=== PATIENT | female | born 1930 | race American Indian/Alaskan Native ===

== ENCOUNTER 2018-06-25 14:29 | Emergency (ER) | payer MEDICARE ==
[2018-06-25] MEDS ORDERED: ATROVENT IH ONE (15:10)
[2018-06-25] MEDS ORDERED: SOLU-Medrol IV ONE (15:10)
[2018-06-25] MEDS ORDERED: PROVENTIL IH ONE (15:10)
[2018-06-25 15:43] LABS: Basophils # (Auto) 0.1 K/mm3 (0.0-0.1); Basophils % (Auto) 0.9 % (0.0-1.8); Eosinophils # (Auto) 0.7 K/mm3 (0.0-0.4); Eosinophils % (Auto) 9.9 % (0.0-4.3); Hematocrit 36.4 % (30.3-42.9); Hemoglobin 12.1 gm/dl (10.1-14.3); Lymphocytes # (Auto) 1.2 K/mm3 (1.2-5.4); Lymphocytes % (Auto) 16.9 % (13.4-35.0); Mean Corpuscular HGB Conc 33 % (30-34); Mean Corpuscular Volume 90 fl (79-97); Monocytes # (Auto) 0.6 K/mm3 (0.0-0.8); Monocytes % (Auto) 8.4 % (0.0-7.3); Platelet Count 172 K/mm3 (140-440); Red Blood Count 4.04 M/mm3 (3.65-5.03); Red Cell Distribution Width 13.9 % (13.2-15.2)
[2018-06-25 16:00] LABS: BUN/Creatinine Ratio 16; Blood Urea Nitrogen 14 mg/dL (7-17); Calcium 9.7 mg/dL (8.4-10.2); Hemolysis Index 5
[2018-06-25 16:01] LABS: INR 1.06 (0.87-1.13); Partial Thromboplastin Time 29.9 Sec. (24.2-36.6)
--- NOTE | 2018-06-25 16:18 | Emergency Department Report ---
ED Shortness of Breath HPI - General Chief Complaint: Dyspnea/Respdistress Stated Complaint: MAGGIE Time Seen by Provider: 06/25/18 15:09 Source: patient Mode of arrival: Stretcher Limitations: No Limitations - History of Present Illness Initial Comments: 87-year-old female with history of COPD presents to ED with shortness of breath. She reports URI symptoms and worsening shortness of breath over the past week, however states today it became so bad that she needed to call EMS. Patient has been using her nebulizer, however no improvement today. She reports productive cough, denies fever. Denies chest pain. - Related Data Previous Rx's Medication Instructions Recorded Last Taken Type ALBUTEROL Inhaler(NF) [VENTOLIN 1 puff IH Q4HR PRN #1 inha 06/25/18 Unknown Rx Inhaler(NF)] Benzonatate [Tessalon Perles] 100 mg PO Q8HR PRN #20 capsule 06/25/18 Unknown Rx predniSONE [Prednisone] 50 mg PO DAILY #5 tablet 06/25/18 Unknown Rx Allergies Allergy/AdvReac Type Severity Reaction Status Date / Time Thiazides Allergy Unknown Verified 06/25/18 15:54 ED Review of Systems ROS: Stated complaint: MAGGIE Other details as noted in HPI ED Past Medical Hx - Past Medical History Hx Hypertension: Yes Hx CVA: No Hx Heart Attack/AMI: No Hx Congestive Heart Failure: No Hx Diabetes: No Hx Deep Vein Thrombosis: No Hx Pulmonary Embolism: No Hx GERD: No Hx Liver Disease: No Hx Renal Disease: No Hx of Cancer: No Hx Sickle Cell Disease: No Hx Arthritis: No Hx Headaches / Migraines: No Hx Seizures: No Hx Kidney Stones: No Hx Psychiatric Treatment: No Hx Asthma: No Hx COPD: Yes Hx Tuberculosis: No Hx Dementia: No Hx HIV: No - Surgical History Past Surgical History?: Yes Hx Coronary Stent: No Hx Open Heart Surgery: No Hx Pacemaker: No Hx Internal Defibrillator: No Hx Cholecystectomy: No Hx Appendectomy: No Hx Breast Surgery: No Additional Surgical History: lung surgery. hernia repair - Social History Smoking Status: Never Smoker Substance Use Type: Other - Medications Home Medications: Home Medications Medication Instructions Recorded Confirmed Last Taken Type ALBUTEROL Inhaler(NF) [VENTOLIN 1 puff IH Q4HR PRN #1 inha 06/25/18 Unknown Rx Inhaler(NF)] Benzonatate [Tessalon Perles] 100 mg PO Q8HR PRN #20 capsule 06/25/18 Unknown Rx predniSONE [Prednisone] 50 mg PO DAILY #5 tablet 06/25/18 Unknown Rx ED Physical Exam - General Limitations: No Limitations ED Course Vital Signs 06/25/18 06/25/18 06/25/18 14:41 16:00 16:15 Temperature 98.5 F Pulse Rate 71 67 71 Pulse Rate [ Anterior] Respiratory 20 22 21 Rate Respiratory Rate [Anterior] Blood Pressure 117/69 123/66 108/73 Blood Pressure [Left] O2 Sat by Pulse 97 100 100 Oximetry 06/25/18 06/25/18 06/25/18 16:30 16:41 16:50 Temperature 98.3 F Pulse Rate 70 Pulse Rate [ 121 H Anterior] Respiratory 26 H Rate Respiratory 22 Rate [Anterior] Blood Pressure 123/66 Blood Pressure [Left] O2 Sat by Pulse 100 Oximetry 06/25/18 06/25/18 18:37 18:38 Temperature 98.3 F Pulse Rate 82 Pulse Rate [ Anterior] Respiratory 22 22 Rate Respiratory Rate [Anterior] Blood Pressure Blood Pressure 135/78 [Left] O2 Sat by Pulse 97 97 Oximetry ED Medical Decision Making - Lab Data Result diagrams: 06/25/18 15:32 06/25/18 15:32 - Radiology Data Radiology results: report reviewed, image reviewed - Medical Decision Making 87-year-old female with history of COPD presents to ED with shortness of breath. Patient received albuterol nebulizer treatment from EMS. Reported relief of symptoms upon ED arrival, however patient did have residual wheezing so another albuterol treatment was given. Labs and chest x-ray were done. Patient had negative troponin 2. Chest x-ray normal, no evidence of pneumonia or pulmonary edema. Patient feeling much better at this time. O2 sats normal, no respira tory distress noted. Patient speaking in full sentences. Lungs are clear. Vital signs normal. Return precautions given. Will discharge with prescription for prednisone, Tessalon, albuterol. Outpatient follow-up advised. - Differential Diagnosis COPD, pneumonia, ACS, pulm edema Critical care attestation.: If time is entered above; I have spent that time in minutes in the direct care of this critically ill patient, excluding procedure time. ED Disposition Clinical Impression: COPD with acute exacerbation Disposition: -01 TO HOME OR SELFCARE Is pt being admited?: No Condition: Stable Instructions: Chronic Obstructive Pulmonary Disease (ED) Prescriptions: ALBUTEROL Inhaler(NF) [VENTOLIN Inhaler(NF)] 1 puff IH Q4HR PRN #1 inha PRN Reason: Wheezing Benzonatate [Tessalon Perles] 100 mg PO Q8HR PRN #20 capsule PRN Reason: Cough predniSONE [Prednisone] 50 mg PO DAILY #5 tablet Referrals: SUE DURON [Other] - 3-5 Days Time of Disposition: 18:18
--- NOTE | 2018-06-25 17:17 | XRay Report ---
FINAL REPORT PROCEDURE: Chest. TECHNIQUE: Chest radiograph anteroposterior view. CPT 83264 HISTORY: Cough, shortness of breath. COMPARISON: No prior studies are available for comparison. FINDINGS: The heart and mediastinum are shifted to the left. The heart size is borderline. The left lung volume is less than the right. It is wondered if the patient has had a lobectomy. Clinical correlation is r ecommended. The lungs are grossly clear. There is hyperinflation of the right lung suggesting possibl e COPD. There are no pleural effusions. The soft tissues are unremarkable. There is a moderate thorac ic scoliosis. 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 IMPRESSION: Question previous left-sided lobectomy. No definite signs of acute cardiopulmonary disease.
[2018-06-25 18:38] VITALS: BP 135/78
== END 2018-06-25 19:02 | disposition home or self-care (01) ==
LOC: ED 14:29
DX: J44.1 Chronic obstructive pulmonary disease with (acute) exacerbation (principal); I10 Essential (primary) hypertension; Z88.8 Allergy status to other drugs, medicaments and biological substances
CPT/HCPCS: 36415; 71045; 80048; 83880; 84484; 85025; 85610; 85730; 94640; 96374; 99284; J2930